=== PATIENT | male | born 1965 | race Caucasian/White ===

== ENCOUNTER 2019-11-13 09:42 | Emergency (ER) | payer BC ==
[~2019-11-13] VITALS: Ht 177.8 cm; Wt 113.4 kg
[2019-11-13] MEDS ORDERED: RISP4 PO (10:12)
[2019-11-13 10:25] LABS: Source, Urine Clean Catch
[2019-11-13 10:29] LABS: Bilirubin, Urine Neg (Neg); Blood, Urine 1+ (Neg); Glucose Qualitative, Urine 3+ (Neg); Ketones, Urine 1+ (Neg); Leukocyte Esterase, Urine Neg (Neg); Nitrite, Urine Neg (Neg); Protein, Urine 1+ (Neg); Specific Gravity, Urine 1.025 (1.003-1.022); Urobilinogen, Urine NORM (Normal)
[2019-11-13 10:55] LABS: Alanine Aminotransfer (ALT/SGP 58 U/L (12-78); Alk Phos 92 U/L (50-136); Anion Gap 5 mmol/L (6-16); Aspartate Aminotrans (AST/SGOT 28 U/L (12-37); Bilirubin, Total 0.5 mg/dL (0.1-1.0); Blood Urea Nitrogen 23 mg/dL (8-24); CO2, Blood 25 mmol/L (21-32); Calcium, Blood 9.2 mg/dL (8.5-10.1); Chloride, Blood 109 mmol/L (98-108); Creatinine, Blood 0.92 mg/dL (0.60-1.20); Globulin, Blood 4.2 g/dL (2.2-4.0); Glomerular Filtration Rate >60 (60-); Glucose, Blood 127 mg/dL (70-99); Potassium, Blood 4.1 mmol/L (3.5-5.5); Sodium, Blood 139 mmol/L (136-145); Total Protein, Blood 8.2 g/dL (6.4-8.2)
[2019-11-13 11:07] LABS: Appearance, Urine Clear (Clear); Color, Urine Yellow (P-Yellow); Red Blood Cells, Urine 0-2 /hpf (0-2); Squamous Epithelial Cells Few /hpf (Few); White Blood Cells, Urine 0-2 /hpf (0-5)
[2019-11-13 11:08] LABS: Bacteria Rare /hpf; Mucus Light (0-Heavy)
== END 2019-11-13 11:30 | disposition home or self-care (01) ==
LOC: ER 09:42
PROVIDERS: Emergency Medicine
DX: M54.5 Low back pain (principal); G89.29 Other chronic pain; R32 Unspecified urinary incontinence; F20.9 Schizophrenia, unspecified; Z79.899 Other long term (current) drug therapy
CPT/HCPCS: 80053; 81001; 99283

== ENCOUNTER 2020-05-29 07:27 | Inpatient (IN) | payer BC, OTHER ==
[~2020-05-29] VITALS: Ht 177.8 cm; Wt 119.4 kg
[~2020-05-29 07:27] MED LIST: RISP4 PO
[2020-05-29] MEDS ORDERED: Flomax0.4 MG PO (07:40)
[2020-05-29 08:03] LABS: BASOPHILS ABSOLUTE AUTO 0.05 K/mm3 (0.00-0.23); BASOPHILS PERCENT AUTO 1 % (0-2); EOSINOPHILS ABSOLUTE AUTO 0.16 K/mm3 (0.00-0.68); EOSINOPHILS PERCENT AUTO 2 % (0-6); Hematocrit 48.6 % (37.0-53.0); Hemoglobin 15.4 g/dL (13.5-17.5); IMMATURE GRAN ABSOLUTE AUTO 0.04 K/mm3 (0.00-0.10); IMMATURE GRAN PERCENT AUTO 0 % (0-1); LYMPHOCYTES ABSOLUTE AUTO 2.57 K/mm3 (0.84-5.20); LYMPHOCYTES PERCENT AUTO 26 % (21-46); MONOCYTES ABSOLUTE AUTO 0.84 K/mm3 (0.16-1.47); MONOCYTES PERCENT AUTO 9 % (4-13); Mean Corpuscular HGB 30.3 pg (26.0-34.0); Mean Corpuscular HGB Conc 31.7 g/dL (31.5-36.5); Mean Corpuscular Volume 96 fL (80-100); NEUTROPHILS ABSOLUTE AUTO 6.06 K/mm3 (1.96-9.15); NEUTROPHILS PERCENT AUTO 63 % (41-73); Platelet Count 197 K/mm3 (150-400); RDW Coefficient Variation 13.6 % (11.7-14.2); RDW Standard Deviation 47.5 fL (35.1-46.3); Red Blood Cell Count 5.08 M/mm3 (4.30-5.90); White Blood Cell Count 9.72 K/mm3 (4.00-11.30)
[2020-05-29 08:25] LABS: Alanine Aminotransfer (ALT/SGP 208 U/L (12-78); Albumin, Blood 3.3 g/dL (3.4-5.0); Albumin/Globulin Ratio 1.1 (0.8-1.8); Alk Phos 62 U/L (50-136); Anion Gap 6 mmol/L (6-16); Aspartate Aminotrans (AST/SGOT 73 U/L (12-37); Bilirubin, Total 0.8 mg/dL (0.1-1.0); Blood Urea Nitrogen 20 mg/dL (8-24); CO2, Blood 21 mmol/L (21-32); Calcium, Blood 8.6 mg/dL (8.5-10.1); Chloride, Blood 115 mmol/L (98-108); Creatinine, Blood 1.11 mg/dL (0.60-1.20); Globulin, Blood 3.1 g/dL (2.2-4.0); Glomerular Filtration Rate >60 (60-); Glucose, Blood 107 mg/dL (70-99); Potassium, Blood 4.4 mmol/L (3.5-5.5); Sodium, Blood 142 mmol/L (136-145); Total Protein, Blood 6.4 g/dL (6.4-8.2); Troponin I <0.015 ng/mL (0.000-0.040)
[2020-05-29 08:36] LABS: Free Thyroxine 0.99 ng/dL (0.70-1.60); Thyroid Stimulating Hormone 2.45 uIU/mL (0.360-4.800)
--- NOTE | 2020-05-29 11:18 | NUR ---
pt arrived to pcu 9 via gurney from ED, report was obtained, pt able to stand and transfer to bed indep. a/ox3, pleasant and coopertive with care, follows commands well, denies pain, but is grunting and acting sob, he states he is a bit sob, sats are 91% on r/a, placed him on 2 liters 02 via n/c for comfort, states its helping some, hrr, tele in place running aflutter in the 120's, Dr. Swann here and asked this life insurance underwriter to give him another 12.5mg of metoprolol at this time, this was done, he also has a cardiology consult that was reported was called in, b/p in the 90's, lungs are clear, dim in bases, resp even and some laboring, sats 95% on 2 liters, btx4, abd round soft nontender, voids without diff, skin c/w/d, ayesha alba, oriented to room layout and call system, call light in reach.
--- NOTE | 2020-05-29 16:59 | NUR ---
IN ROOM, ECHO BEING DONE, EF 10%, DR. GREWAL PT IN ICU FOR PRESSORS, REPORT WAS GIVEN TO CHRISTOS ZAVALETA, PT TAKEN VIA BED TO ICU 6, WITH HIS BELONGINGS WITH HIM.
--- NOTE | 2020-05-29 17:00 | NUR ---
INITIAL ASSESSMENT PATIENT ARRIVED TO ROOM AT 1650. PATIENT ALERT AND ORIENTED X 4, AFEBRILE. PATIENT ANXIOUS. PATIENT DENIES PAIN. PATIENT SATTING 90% AND GREATER ON 2 L NC. PATIENT SOB, BREATHING HEAVILY, LABORED, TACHYPNEIC. LUNGS CLEAR IN UPPER LUNGS, CRACKLES NOTED IN LOWER LOBES. HR 120S. BP STABLE. GI WNL. WNL; URINAL AT BEDSIDE. SKIN APPEARS WNL. BED LOW, CALL LIGHT IN REACH. PATIENT ORIENTED TO UNIT, ROOM AND CALL LIGHT. DR. PALACIO CALLED AND INFORMED OF PATIENT'S BREATHING, HR AND BP. ORDERS RECEIVED.
--- NOTE | 2020-05-29 17:30 | NUR ---
DR. BONE TO PATIENT ROOM. ORDERS RECEIVED.
--- NOTE | 2020-05-29 19:00 | NUR ---
ASSUMED CARE ASSUMED CARE OF PATIENT. AWAKE AND ALERT. ORIENTED AND COOPERATIVE. SLIGHTLY ANXIOUS AND FEARFUL AT TIMES. MOVES SELF IN BED WITHOUT DIFFICULTY. DYSPNEA/SOB NOTED WITH MINIMAL EXERTION. PT HAS RESPIRATORY PATTERN OF SHORT PERIODS OF TACHYPNEA FOLLOWED BY SLOWER RESPIRATIONS. OCCASIONAL LOOSE COUGH. REMAINS ON 2L NC. MONITOR SHOWS AFLUTTER, RATE 120s. RATE INCREASES TO 140-150 WITH EXERTION. AMIODARONE INFUSING AT 1MG/MIN AND DOBUTAMINE AT 5MCG/KG/MIN. BP STABLE. DENIES NAUSEA OR C/O PAIN. PT REQUESTS A CORLEY CATHETER D/T DIFFICULTY USING URINAL AND INCREASED DYSPNEA WITH ATTEMPTS. SEE SHIFT ASSESSMENT FOR FULL ASSESSMENT.
--- NOTE | 2020-05-29 19:25 | NUR ---
SHIFT SUMMARY PATIENT REMAINED ALERT AND ORIENTED, AFEBRILE. PATIENT CONTINUES TO DENY PAIN. HR 120S. BP REMAINS STABLE. BREATHING APPEARS TO BE BECOMING EASIER AND PATIENT AGREES. RR DECREASED FROM INITIAL ADMIT TO UNIT. PATIENT RECEIVED 20 MG IV LASIX. DOBUTAMINE INFUSING AT 5 MCG/ KG/ MINUTE AND IS ORDERED TO REMAIN AT THIS RATE FOR THE REST OF THE NIGHT. AMIODARONE DRIP INFUSING AT 1 MCG/ MINUTE FOR [address] PALACIO UPDATED PATIENT'S MOTHER. PATIENT HAS NO COMPLAINTS AT THIS TIME. DRIPS CHECKED AND REPORT GIVEN TO ASSUMING MORTUARY OPERATIONS MANAGER NURSE.
--- NOTE | 2020-05-30 00:40 | NUR ---
AMIODARONE GTT AMIODARONE GTT DECREASED TO 0.5MG/MIN (16.7CC/HR) AT THIS TIME PER ORDER
[2020-05-30 03:52] LABS: BASOPHILS ABSOLUTE AUTO 0.03 K/mm3 (0.00-0.23); BASOPHILS PERCENT AUTO 0 % (0-2); EOSINOPHILS ABSOLUTE AUTO 0.11 K/mm3 (0.00-0.68); EOSINOPHILS PERCENT AUTO 1 % (0-6); Hematocrit 43.5 % (37.0-53.0); Hemoglobin 14.1 g/dL (13.5-17.5); IMMATURE GRAN ABSOLUTE AUTO 0.06 K/mm3 (0.00-0.10); IMMATURE GRAN PERCENT AUTO 1 % (0-1); LYMPHOCYTES ABSOLUTE AUTO 2.68 K/mm3 (0.84-5.20); LYMPHOCYTES PERCENT AUTO 21 % (21-46); MONOCYTES ABSOLUTE AUTO 1.07 K/mm3 (0.16-1.47); MONOCYTES PERCENT AUTO 8 % (4-13); Mean Corpuscular HGB 30.9 pg (26.0-34.0); Mean Corpuscular HGB Conc 32.4 g/dL (31.5-36.5); Mean Corpuscular Volume 95 fL (80-100); Mean Platelet Volume 10.1 fL (9.1-12.4); NEUTROPHILS ABSOLUTE AUTO 8.85 K/mm3 (1.96-9.15); NEUTROPHILS PERCENT AUTO 69 % (41-73); Platelet Count 196 K/mm3 (150-400); RDW Coefficient Variation 13.5 % (11.7-14.2); RDW Standard Deviation 47.1 fL (35.1-46.3); Red Blood Cell Count 4.57 M/mm3 (4.30-5.90)
[2020-05-30 04:07] LABS: Anion Gap 6 mmol/L (6-16); Blood Urea Nitrogen 20 mg/dL (8-24); Bun/Creatinine Ratio 20.9 (12.0-20.0); CO2, Blood 26 mmol/L (21-32); Calcium, Blood 8.2 mg/dL (8.5-10.1); Chloride, Blood 109 mmol/L (98-108); Creatinine, Blood 0.96 mg/dL (0.60-1.20); Glomerular Filtration Rate >60 (60-); Glucose, Blood 95 mg/dL (70-99); Potassium, Blood 3.8 mmol/L (3.5-5.5); Sodium, Blood 141 mmol/L (136-145)
--- NOTE | 2020-05-30 06:09 | NUR ---
SHIFT SUMMARY NO ACUTE CHANGES DURING NOC. SLEPT WHEN UNDISTURBED. ROUSES EASILY TO STIMULI. DENIES C/O PAIN OR DISCOMFORT. PT STATES THAT HE FEELS LIKE HE IS "BREATHING BETTER" THIS AM. CONTINUES WITH RESPIRATORY PATTERN OF TACHYPNEA FOLLOWED BY SLOWER RESPIRATIONS. DYSPNEA/SOB WITH EXERTION. REMAINS ON 2L NC. REMAINS IN A-FLUTTER, RATE 110s-120s. OCCASIONALLY INCREASES WITH EXERTION. AMIODARONE CONTINUES AT 0.5MG/MIN. DOBUTAMINE CONTINUES AT 5MCG/KG/MIN. AFEBRILE. JORY PATENT AND DRAINING. WILL REPORT TO ONCOMING RN WHEN AVAILABLE.
--- NOTE | 2020-05-30 09:25 | NUR ---
ECHOCARDIOGRAM DONE IN u 05/29/20
--- NOTE | 2020-05-30 09:30 | NUR ---
AM NOTE... ASSUMED CARE OF PT APROX 0700, PT IS A&Ox4. PT WAS ADMITTED FOR AFLUTTER W/RVR AND SOB. CURRENTLY PT IS IN AFLUTTER IN THE 110'S-120'S TO 130'S WITH ACTIVITY/TALKING/EATING. PT'S BREATHING IS LABORED W/ACCESSORY MUSCLE USE AND OCC GRUNTING, PT IS ON 2L NC WITH O2 SATS>90%. L/S CLEAR IN THE UPPER LOBES FINE CRACKLES NOTED IN THE BASES. TRACE GENGERALIZED EDEMA IS NOTED ON ASSESSMENT. BT PRESENT AND HYPOACTIVE, ABD HAS MILD DISTENTION, SOFT NONTENDER TO PALP. PT ATE 100% OF HIS BREAKFAST. CORLEY IS PATENT AND DRAINING DARK YELLOW URINE TO GRAVITY. PT HAS AMIODERONE GTT RUNNING AT 0.5 AND DOBUTAMINE RUNNING AT 5MCG/KG/MIN PER DR. BONE'S ORDERS. AT THE BEDSIDE TO ASSESS PT, PER DR. BONE HE WANTS TO KEEP THE AMIODERONE GTT RUNNING AT 0.5 UNTIL AT LEAST 8/[address] BONE ALSO WANTS TO CONTINUE THE DOBUTAMINE GTT AT 5MCG/KG/MIN. CALL LIGHT IN REACH WILL CONTINUE TO MONITOR.
--- NOTE | 2020-05-30 18:38 | NUR ---
SHIFT SUMMARY... NO ACUTE NEGATIVE CHANGES NOTED THIS SHIFT. PT REMAINS ON AMIODERONE AT 0.5, PER DR. BONE PT IS TO REMAIN ON THIS DRIP UNTIL HE REASSESSES THE PT TOMORROW. PT ALSO REMAINS ON THE DOBUTAMINE GTT AT 5MCG/KG/MIN, PT'S BP HAS BEEN STABLE T/O SHIFT. PT REMAINS IN AFLUTTER IN THE 90'S-110'S, THIS IS AN IMPROVMENT FROM THE START OF THIS SHIFT WHEN HE WAS IN THE 110'S-130'S. PT'S CORLEY REMAINS PATENT AND DRAINING CLEAR YELLOW URINE TO GRAVITY. PT HAS EATEN 100% OF ALL MEALS TODAY. PT HAS DENIED ANY CHEST PAIN/PRESSURE OR N/V TODAY, PT ALSO STATES THAT HIS SOB HAS IMPROVED T/O THE SHIFT. PT MOVES HIMSELF AROUND IN THE BED FREQUENTLY. PT IS CURRENTLY ON RA WITH O2 SATS AT 92% PT USES O2 PRN AT THIS TIME. CALL LIGHT IN REACH WILL CONTINUE TO MONITOR UNTIL REPORT IS GIVEN TO ONCOMING RN.
--- NOTE | 2020-05-30 19:31 | NUR ---
ASSUMING CARE OF PATIENT PATIENT RESTING IN BED CURRENTLY WITH EYES CLOSED. BEDSIDE BEADING SAWYER SHOWS ATRIAL FLUTTER. BLOOD PRESSURE IS STABLE. HEART RATE IS IN THE 70S-90S. OXYGEN SATURATION STABLE ON ROOM AIR. BREATHING PATTERN IS IRREGULAR AND TACHYPNEIC. ABDOMEN IS ROUNDED. CORLEY CATHETER IN PLACE AND DRAINING. DOBUTAMINE IS INFUSING AT 5 MCG THROUGH THE POWERGLIDE. AMIODARONE CONTINUES AT O.5 MG. CALL LIGHT WITHIN REACH AND CURTAIN OPEN FOR VISIBILITY.
[2020-05-31 04:11] LABS: BASOPHILS ABSOLUTE AUTO 0.04 K/mm3 (0.00-0.23); BASOPHILS PERCENT AUTO 0 % (0-2); EOSINOPHILS PERCENT AUTO 2 % (0-6); Hematocrit 43.1 % (37.0-53.0); Hemoglobin 14.1 g/dL (13.5-17.5); IMMATURE GRAN ABSOLUTE AUTO 0.03 K/mm3 (0.00-0.10); IMMATURE GRAN PERCENT AUTO 0 % (0-1); LYMPHOCYTES ABSOLUTE AUTO 1.75 K/mm3 (0.84-5.20); LYMPHOCYTES PERCENT AUTO 16 % (21-46); MONOCYTES ABSOLUTE AUTO 0.98 K/mm3 (0.16-1.47); MONOCYTES PERCENT AUTO 9 % (4-13); Mean Corpuscular HGB 30.9 pg (26.0-34.0); Mean Corpuscular HGB Conc 32.7 g/dL (31.5-36.5); Mean Corpuscular Volume 95 fL (80-100); NEUTROPHILS ABSOLUTE AUTO 7.67 K/mm3 (1.96-9.15); NEUTROPHILS PERCENT AUTO 72 % (41-73); Platelet Count 194 K/mm3 (150-400); RDW Coefficient Variation 13.6 % (11.7-14.2); RDW Standard Deviation 46.8 fL (35.1-46.3); Red Blood Cell Count 4.56 M/mm3 (4.30-5.90); White Blood Cell Count 10.67 K/mm3 (4.00-11.30)
[2020-05-31 04:48] LABS: Anion Gap 4 mmol/L (6-16); Blood Urea Nitrogen 17 mg/dL (8-24); Bun/Creatinine Ratio 14.7 (12.0-20.0); CO2, Blood 27 mmol/L (21-32); Calcium, Blood 8.5 mg/dL (8.5-10.1); Chloride, Blood 110 mmol/L (98-108); Creatinine, Blood 1.16 mg/dL (0.60-1.20); Glomerular Filtration Rate >60 (60-); Glucose, Blood 104 mg/dL (70-99); Magnesium, Blood 2.2 mg/dL (1.6-2.4); Potassium, Blood 4.2 mmol/L (3.5-5.5); Sodium, Blood 141 mmol/L (136-145)
--- NOTE | 2020-05-31 06:31 | NUR ---
END OF SHIFT SUMMARY PATIENT REMAINS INTACT NEUROLOGICALLY WITH EXCEPTION OF SOME DELAYED RESPONSES. ANXIOUS AT TIMES. BP STABLE. AMIODARONE AND DOBUTAMINE CONTINUE WITH NO CHANGES. HEART RATE IS LABILE WITH RATE RANGING BETWEEN 70S-120S. BEDSIDE SENIOR LOAN OFFICER SHOWS ATRIAL FLUTTER. TRACE EDEMA. LUNGS CLEAR AND DIM. OXYGEN SATURATION STABLE ON ROOM AIR WHILE AWAKE. 2-5 L NC WHILE ASLEEP. TOLERATING CARDIAC DIET WELL. CORLEY CATHETER REMAINS IN PLACE WITH ADEQUATE URINE OUTPUT. SKIN INTACT WITH SOME SCATTERED BRUISING. PIV X [address] IN PLACE AND INFUSING DOBUTAMINE.
--- NOTE | 2020-05-31 07:35 | NUR ---
AM NOTE... ASSUMED CARE OF PT APROX 0700, PT IS A&Ox4 WITH SLOW RESPONSES AT TIMES. PT IS STILL IN AFLUTTER RVR WITH RATES 90'S-120'S, PT HAD A 7 BEAT RUN OF SYMPTOMATIC VTACH, DURING THIS EPISODE PT C/O OF INCREASED SOB. PT'S OTHER VS STABLE AT THIS TIME, PT IS ON 2L NC PRN WITH O2 SATS >90%. L/S CLEAR T/O DIM IN THE BASES. BT PRESENT AND HYPOACTIVE ABD IS SOFT AND NONTENDER TO PALP. PT DENIES ANY CHEST PAIN/PRESSURE OR N/V AT THIS TIME. TRACE EDEMA NOTED TO BLE ON ASSESSMENT. CORLEY IS PATENT AND DRAINING YELLOW URINE TO GRAVITY. PT IS ON AMIODERONE GTT RUNNING AT 0.[address] BONE. PT IS ALSO ON DOBUTAMINE RUNNING AT 5 MCG/KG/MIN PER DR. BONE'S ORDERS. PT ATE 100% OF HIS BREAKFAST. PT STATES HE FEELS "A LITTLE BETTER" TODAY THAN HE DID YESTERDAY. CALL LIGHT IN REACH WILL CONTINUE TO MONITOR.
--- NOTE | 2020-05-31 14:05 | NUR ---
PARTIAL ECHOCARDIOGRAM COMPLETE
--- NOTE | 2020-05-31 18:21 | NUR ---
SHIFT SUMMARY... NO ACUTE NEGATIVE CHANGES NOTED THIS SHIFT. PT REMAINS IN AFLUTTER RVR WITH RATES IN THE 90'S-120'S. PT IS ON 2L NC WITH O2 SATS >90%. PT'S BP STABLE T/O SHIFT. PT DENIES ANY CHEST PAIN/PRESSURE. PER DR. BONE PT IS TO BE NPO AFTER MIDNIGHT FOR GERALDO/CARDIOVERSION [id number]. PT GOT UP TO THE BSC AND HAD A SMALL BM, THEN UP TO RECLINER CHAIR. PT'S HR DID NOT INCREASE OVER 125 DURING ACTIVITY, THIS IS AN IMPROVEMENT, PT ALSO STATED THAT HE DID NOT FEEL INCREASED SHORTNESS OF BREATH DURING THIS MOVMENT. PT WAS GIVEN A BEDBATH AND LINEN CHANGE. PT HAS EATEN 100% OF ALL MEALS THIS SHIFT. PT HAD ANOTHER ECHO DONE, PENDING RESULTS. CALL LIGHT IN REACH WILL CONTINUE TO MONITOR UNTIL REPORT IS GIVEN TO ONCOMING RN.
--- NOTE | 2020-05-31 18:42 | NUR ---
PT UPDATE... PT'S IV IN LEFT FOREARM WAS D/C'D DUE TO THE SITE INFLITRATING WITH AMIODERONE. PHARMACY WAS CALLED THERE IS NO INTERVENTION TO DO FOR THIS TYPE OF INFILTRATION. CHARGE NURSE AWARE, THERE IS A FIRM RED AREA THE SIZE OF A GOLF BALL AT THE SITE. WILL CONTINUE TO MONITOR.
--- NOTE | 2020-05-31 19:30 | NUR ---
ASSUMED CARE BEDSIDE REPORT WITH CARMINA ZAVALETA AT 1900. ASSUMED PT CARE. PT SITTING UP IN CHAIR, ASSISTED BACK TO BED. PT MOVES WELL, ONLY REQUIRES ASSISTANCE DUE TO CORDS AND LINES. PT ALERT AND ORIENTED. DENIES PAIN. STATES SOB HAS BEEN IMPROVING WITH SINCE ADMIT. PT HAS POWER GLIDE TO RIGHT UPPER ARM THAT IS CAPPED. PT HAS NEW TL PICC LINE TO LEFT UPPER ARM WITH AMIODARONE INFUSING @ 0.5MCG/MIN (CONTINUOUS INFUSION PER DR BONE), AND DOBUTAMINE INFUSING @ 5MCG/KG/MIN (RATE TO STAY AT 5MCG WITH NO TITRATION PER DR BONE). ABD SOFT BUT DISTENDED, BS HYPOACTIVE. PT HAS PATENT CORLEY DRAINING SMALL AMOUNT OF LEO URINE. PT MOVES ALL 4 EXT INDEPENDENTLY. PT HAS O2 AT 4L PER NC, SATS >92%. PT ON CONTINUOUS CARDIAC MONITORING, CURRENTLY AFLUTTER RATE LOW 100'S. PT HAS NO EDEMA. DENIES NAUSEA. DENIES SOB DESPITE TACHYPNEA. SITE TO LEFT UPPER ARM FOLLOWS. AC AREA SWOLLEN AND RED WITH QUARTER SIZE AREA OF INDURATION, PT STATES THIS IS TENDER. REDNESS EXTENDS UP TO MID BICEP AREA. CARMINA ZAVALETA STATES ARM LOOKED THIS WAY PRIOR TO PICC LINE PLACEMENT. STATES IT WAS FROM AMIODARONE INFILTRATING. PICC LINE DRESSING SATURATED WITH BLOOD (DRESSING CHANGED TO NEW TEGADERM CHG). SEE PICS IN CHART. SEE FULL SHIFT ASSESSMENT
[2020-06-01 04:39] LABS: Anion Gap 5 mmol/L (6-16); Blood Urea Nitrogen 18 mg/dL (8-24); Bun/Creatinine Ratio 15.5 (12.0-20.0); CO2, Blood 27 mmol/L (21-32); Calcium, Blood 8.8 mg/dL (8.5-10.1); Chloride, Blood 108 mmol/L (98-108); Creatinine, Blood 1.16 mg/dL (0.60-1.20); Glomerular Filtration Rate >60 (60-); Glucose, Blood 105 mg/dL (70-99); Potassium, Blood 4.2 mmol/L (3.5-5.5); Sodium, Blood 140 mmol/L (136-145)
--- NOTE | 2020-06-01 06:16 | NUR ---
SHIFT SUMMARY PT HAD UNEVENTFUL SHIFT. PT RESTED WELL. PT ON 4L O2 PER NC, SATS >92%. PT ON MONITOR, SHOWING A FLUTTER RATE 95-120. PT HAS TL PICC TO JUAN C, WITH AMIODARONE INFUSING AT 0.5MCG/MIN AND DOBUTAMINE INFUSING AT 5MCG/KG/MIN. SITE CONTINUES TO LOOK UNCHANGED FROM START OF SHIFT. DRESSING C/D/I, SITE STILL SHOWS SOME CONGEALED BLOOD. PRESSURES ARE CURRENTLY STABLE, THERE WERE A FEW PRESSURES WITH SBP <80. PT DENIED CP OR SIGNIFICANT SOB. PT ALERT AND ORIENTED. PT HAS PATENT CORLEY WITH YELLOW URINE DRAINING (TOTAL OUT 1500ML LAST SHIFT). PT HAS DL POWER GLIDE TO TU, DRESSING C/D/I. PT CONTINUES TO GRUNT WHILE BREATHING. PT HAS BEEN NPO SINCE MIDNIGHT FOR GERALDO CARDIOVERSION WITH ANESTHESIOLOGY PLANNED FOR TODAY. PT ABD SOFT AND DISTENDED. BOWEL CARE STARTED YESTERDAY. PT DENIES NAUSEA/VOMITING. NO STOOL DURING OCEAN LIFEGUARD SPECIALIST. WILL REPORT TO ONCOMING SHIFT.
--- NOTE | 2020-06-01 09:17 | NUR ---
AM NOTE... ASSUMED CARE OF PT APROX 0700, PT IS A&Ox4, SLOW TO RESPOND, FLAT AFFECT BUT RESPONDS APPROPRIATELY TO QUESTIONS. PT HAS BEEN NPO SINCE MIDNIGHT FOR GERALDO AND POSSIBLE CARDIOVERSION FOR HIS AFLUTTER RVR. PT'S CURRENT RATE IS IN THE 100'S-120'S. PT DENIES CHEST PAIN/PRESSURE OR INCREASED SOB. PT WAS ON 4L NC BUT HAS BEEN TITRATED DOWN TO 2L NC WITH O2 SATS >92%. PT HAS PICC IN THE JUAN C THAT IS RUNNING AMIODERONE AT 0.5 AND DOBUTAMINE AT 5MCG/KG/MIN PER ORDERS. L/S CLEAR T/O DIM IN THE BASES. BT PRESENT BUT HYPOACTIVE,ABD IS SOFT AND NONTENDER TO PALP. CALL LIGHT IN REACH WILL CONTINUE TO MONITOR.
--- NOTE | 2020-06-01 13:28 | NUR ---
PT UPDATE... PT HAD GERALDO THAT SHOWED NO CLOT AND THEN HAD CARDIOVERSION, THIS WAS SUCCESSFUL WITH THE PT CONVERTING FROM AFLUTTER IN THE 110'S-120'S TO NSR IN THE 70'S-80'S. PT DENIES ANY CHEST PAIN/PRESSURE AT THIS TIME. PT'S O2 SATS DROPPED TO 87%, PT'S O2 WAS INCREASED FROM 2L NC TO 5L NC WITH O2 SATS >94%. WILL CONTINUE TO MONITOR.
--- NOTE | 2020-06-01 18:09 | NUR ---
SHIFT SUMMARY... NO ACUTE NEGATIVE CHANGES NOTED THIS SHIFT. PT HAD GERALDO AND CARDIOVERSION THAT WAS SUCCESSFUL PT WAS CONVERTED TO NSR IN THE 70'S-80'S AND HAS REMAINED IN NSR. PT IS ON 2L NC WITH O2 SATS >90%. PT'S VS HAVE BEEN STABLE SINCE THE CARDIOVERSION. PT HAS BEEN UP IN THE CHAIR AND ATE 100% OF HIS DINNER. CORLEY PATENT AND DRAINING YELLOW URINE TO GRAVITY. CALL LIGHT IN REACH WILL CONTINUE TO MONITOR UNTIL REPORT IS GIVEN TO ONCOMING RN.
--- NOTE | 2020-06-01 19:00 | NUR ---
ASSUMED CARE BEDSIDE REPORT WITH CARMINA ZAVALETA. ASSUMED PT CARE. PT ALERT AND ORIENTED. WORK OF BREATHING OBVIOUSLY IMPROVE FROM PREVIOUS SHIFT WITH PT. PT SITTING IN BED PLAYING ON PHONE. PLAN TO DECREASE DOBUTAMINE BY 1MCG/HR PER HR UNTIL 0, DECREASED TO 3MCG AT THIS TIME. PT ALSO HAS AMIODARONE INFUSING AT 0.5MCG/MIN. PT HAS POWER GLIDE TO [facility], SITE C/D/I. PT HAS TL PICC TO [facility], SITE WNL. AREA TO LEFT FA/AC STILL SWOLLEN AND RED WITH INDURATION. PT STATES ITS "SORE". PT HAS PATENT CORLEY DRAINING YELLOW URINE, PT ON MONITOR, SHOWS NSR AT 89. PT DENIES CP. PT ON 3L O2 PER NC, SATS >92%. BP STABLE. PT REPORTS BM TODAY. GOOD APPETITE. DENIES N/V. SEE FULL SHIFT ASSESSMENT.
[2020-06-02 04:13] LABS: Anion Gap 5 mmol/L (6-16); Blood Urea Nitrogen 27 mg/dL (8-24); Bun/Creatinine Ratio 21.1 (12.0-20.0); CO2, Blood 29 mmol/L (21-32); Calcium, Blood 8.6 mg/dL (8.5-10.1); Chloride, Blood 105 mmol/L (98-108); Creatinine, Blood 1.28 mg/dL (0.60-1.20); Glomerular Filtration Rate >60 (60-); Glucose, Blood 101 mg/dL (70-99); Sodium, Blood 139 mmol/L (136-145)
--- NOTE | 2020-06-02 06:45 | NUR ---
SHIFT SUMMARY PT REMAINED ALERT AND ORIENTED THROUGH OUT SHIFT. DOBUTAMINE DRIP TITRATED OFF AT 2214. AMIO COMPLETE AT 0337. JORY LYMAN THIS AM, PT HAS NOT VOIDED. PT VSS, SKIN REMAINS INTACT. LUNG SOUNDS CLEAR/DIMINISHED. SATS >92% ON 2-4L O2 PER NC. PT HAS GOOD APPETITE AND TOLERATES PO W/O ISSUE, LAST BM 06/01, PT CONTINUES WITH SOFTNERS. PT SKIN OVER ALL C/D/I. NO FURTHER COMPLICATION TO LEFT FA/AC (SITE OF PREVIOUS IV INFILTRATION). NO COMPLAINTS OF PAIN OR SOB. WILL REPORT TO ONCOMING SHIFT.
--- NOTE | 2020-06-02 08:00 | NUR ---
Received reort from Darell ZAVALETA. Patient sleeping when entering room and awakens easily to verbal stimuli and falls back to sleep. He is n RA and sats >90%. He is able to communicate his needs but slowly. He denies any CP and remains in SR in the 80's. Patient has PICC in JUAN C dressing intact and site WNL's and is Flushed , caps changed and SL'd. He also has PowerGlide 18ga in TU dressing intact and site WNL's and is flushed, caps changed, and SL'd. He calls and uses urinal appropriately.
--- NOTE | 2020-06-02 09:30 | NUR ---
Patient tolerated meds and breakfast well. Denies any current needs or CP. He remains in SR 80's with systolic 130's. No other significant changes.
--- NOTE | 2020-06-02 11:30 | NUR ---
Patient has been resting. He calls appropriately and does not get out of bed without calling. He remains on RA and sats >90% and has not desat when resting. No other significant changes
--- NOTE | 2020-06-02 13:30 | NUR ---
patient called to get up to bedside cammode and was able to transfer with SBA and transfered self back to bed. He states dyspnea with exertion. Dr Swann by and is Med with tele and will have PT eval. Dr Decker by as well and had some concern about med compliance after discharge. Will talk with SS and talk about out patient psych and PCP. Slightly hypotensive in the 90since am med pass, both Dr notified. VSS, See EMR.
--- NOTE | 2020-06-02 15:10 | NUR ---
Gave report to med RN and patient will transfer to Room 331 all belonging gathered and patient will go up in wheelchair.
--- NOTE | 2020-06-02 15:30 | NUR ---
PT ARRIVED TO ROOM 331 VIA W/C, ABLE TO STAND AND TRANSFER TO BED WITHOUT APPARENT DIFFICULTY, ORIENTED TO ROOM AND CALL SYSTEM. PT DENIES PAIN AND DISCOMFORT AT THIS TIME, NO WANTS OR NEEDS. WILL MONITOR
--- NOTE | 2020-06-02 16:24 | NUR ---
Supportive Pt visit this afternoon. Pt resting in bed and denies pain and dyspnea at this time. Listened as Pt reports living with his sister and is having concerns regarding not being on the rental lease. Pt reports hopefulness that he will be able to get on the lease when the new landlords take over. Pt reports adequate support with his sister. Educated on the importance of compliance with recommendations and medication management. Pt is agreeable for Palliative Care to discuss further with sister when she comes into visit. Pt reports sister has hearing impairment and isn't able to communicate over the phone well. Pt reports no other concerns at this time. Spoke with Bedside WAQAR Jovel and discussed case. Palliative Care will remain available.
--- NOTE | 2020-06-02 18:10 | NUR ---
NO ACUTE CHANGES SINCE ARRIVAL TO ROOM, WILL REPORT TO ONCOMING RN
--- NOTE | 2020-06-03 06:06 | NUR ---
BLOCK SETTER GYPSUM SUMMARY NO ACUTE CHANGES THIS SHIFT. PT AAOX3 AND PLEASANT. FLAT AFFECT AND A BIT WITHDRAWN BUT COOPERATIVE WITH CARE. NO CHANGES ON TELE, HAS BEEN NSR IN THE 70-80'S TONIGHT. PT HAS BEEN SLEEPING MOST OF THE SHIFT. VSS, WILL CONTINUE TO MONITOR.
[2020-06-03 08:00] LABS: BASOPHILS ABSOLUTE AUTO 0.03 K/mm3 (0.00-0.23); BASOPHILS PERCENT AUTO 0 % (0-2); EOSINOPHILS PERCENT AUTO 4 % (0-6); Hematocrit 44.8 % (37.0-53.0); Hemoglobin 14.8 g/dL (13.5-17.5); IMMATURE GRAN ABSOLUTE AUTO 0.04 K/mm3 (0.00-0.10); IMMATURE GRAN PERCENT AUTO 1 % (0-1); LYMPHOCYTES ABSOLUTE AUTO 1.78 K/mm3 (0.84-5.20); LYMPHOCYTES PERCENT AUTO 21 % (21-46); MONOCYTES PERCENT AUTO 10 % (4-13); Mean Corpuscular HGB 30.9 pg (26.0-34.0); Mean Corpuscular Volume 94 fL (80-100); Mean Platelet Volume 10.1 fL (9.1-12.4); NEUTROPHILS ABSOLUTE AUTO 5.45 K/mm3 (1.96-9.15); NEUTROPHILS PERCENT AUTO 65 % (41-73); Platelet Count 197 K/mm3 (150-400); RDW Standard Deviation 45.3 fL (35.1-46.3); Red Blood Cell Count 4.79 M/mm3 (4.30-5.90)
[2020-06-03 08:39] LABS: Alanine Aminotransfer (ALT/SGP 85 U/L (12-78); Anion Gap 5 mmol/L (6-16); Aspartate Aminotrans (AST/SGOT 22 U/L (12-37); Blood Urea Nitrogen 28 mg/dL (8-24); CO2, Blood 26 mmol/L (21-32); Calcium, Blood 8.7 mg/dL (8.5-10.1); Chloride, Blood 108 mmol/L (98-108); Creatinine, Blood 1.22 mg/dL (0.60-1.20); Glomerular Filtration Rate >60 (60-); Glucose, Blood 99 mg/dL (70-99); Potassium, Blood 4.4 mmol/L (3.5-5.5); Sodium, Blood 139 mmol/L (136-145)
--- NOTE | 2020-06-03 16:49 | NUR ---
SHIFT SUMMARY PT A/O X3 AND PLEASANT. HIS AFFECT APPEARS FLAT BUT HE IS COOPERATIVE WITH CARE. PICC LINE DRESSING AND CAPS CHANGED TODAY. IN ORDER TO HELP ALLEVIATE THE PT'S DRY COUGH, LISINOPRIL HAS BEEN CHANGED TO [place]. PT HAS BEEN IND IN THE ROOM TODAY. NO CHANGES TO TELE, PT REMAINS IN NSR IN THE 70S-80S. VS REVIEWED. WILL CONTINUE TO MONITOR.
[2020-06-04 05:17] LABS: BASOPHILS ABSOLUTE AUTO 0.05 K/mm3 (0.00-0.23); BASOPHILS PERCENT AUTO 1 % (0-2); EOSINOPHILS ABSOLUTE AUTO 0.32 K/mm3 (0.00-0.68); EOSINOPHILS PERCENT AUTO 4 % (0-6); Hematocrit 43.6 % (37.0-53.0); Hemoglobin 14.1 g/dL (13.5-17.5); IMMATURE GRAN ABSOLUTE AUTO 0.04 K/mm3 (0.00-0.10); IMMATURE GRAN PERCENT AUTO 1 % (0-1); LYMPHOCYTES ABSOLUTE AUTO 1.89 K/mm3 (0.84-5.20); LYMPHOCYTES PERCENT AUTO 22 % (21-46); MONOCYTES ABSOLUTE AUTO 0.85 K/mm3 (0.16-1.47); MONOCYTES PERCENT AUTO 10 % (4-13); Mean Corpuscular HGB 30.3 pg (26.0-34.0); Mean Corpuscular HGB Conc 32.3 g/dL (31.5-36.5); Mean Corpuscular Volume 94 fL (80-100); Mean Platelet Volume 10.2 fL (9.1-12.4); NEUTROPHILS ABSOLUTE AUTO 5.49 K/mm3 (1.96-9.15); NEUTROPHILS PERCENT AUTO 64 % (41-73); Platelet Count 204 K/mm3 (150-400); RDW Coefficient Variation 12.9 % (11.7-14.2); RDW Standard Deviation 44.6 fL (35.1-46.3); Red Blood Cell Count 4.65 M/mm3 (4.30-5.90); White Blood Cell Count 8.64 K/mm3 (4.00-11.30)
[2020-06-04 05:37] LABS: Alanine Aminotransfer (ALT/SGP 77 U/L (12-78); Anion Gap 4 mmol/L (6-16); Aspartate Aminotrans (AST/SGOT 24 U/L (12-37); Blood Urea Nitrogen 30 mg/dL (8-24); Bun/Creatinine Ratio 23.8 (12.0-20.0); CO2, Blood 27 mmol/L (21-32); Calcium, Blood 8.6 mg/dL (8.5-10.1); Chloride, Blood 109 mmol/L (98-108); Creatinine, Blood 1.26 mg/dL (0.60-1.20); Glomerular Filtration Rate >60 (60-); Glucose, Blood 95 mg/dL (70-99); Potassium, Blood 4.3 mmol/L (3.5-5.5); Sodium, Blood 140 mmol/L (136-145)
--- NOTE | 2020-06-04 06:03 | NUR ---
PT CALM COOPERATIVE WITH CONCERN FOR Sister who had GI flu & had discussed going AMA to assist her to get to ER to be evaluated. He stayed calm & used problem solving skills to stay calm & arrange to assist her while still in the Hospital. No abnormal cardiac rythems this shift per tele monitor. Able to tolerate diet & activity.
--- NOTE | 2020-06-04 16:59 | NUR ---
Shift Summary A/Ox4. Cooperative with care. Up ambulating in hallway independenly. Calls for needs appropriately. Denies pain, nausea, vomiting. Pt did c/o have slight shortness of breath after ambulating. Tele remained SR t/o shift. Denies chest pain. Repeat ECHO completed today. Per Dr. Decker, patient to stay one more night. Possible discharge tomorrow. Appetite is good. VS has been fairly stable with SBP's in the high 90's. Afebrile. Will continue to monitor.
--- NOTE | 2020-06-04 18:20 | NUR ---
LASIX RECEIVED VERBAL ORDER FROM DR. BONE FOR ONCE TIME DOSE OF LASIX 20 MG.
--- NOTE | 2020-06-04 18:21 | NUR ---
DISCHARGE MED REC VERIFIED DISCHARGE MEDS WITH DR. BONE. NO NEW CHANGES, ALL ARE APPROPRIATE PER DOCUMENT CONTROL SPECIALIST.
--- NOTE | 2020-06-04 21:37 | NUR ---
PT UP AD MARCE TO HALLS; DENIES PAIN OR NAUSEA; TELEMETRY REFLECTS NSR WITH HEART RATE 72 PER DELIA--COMPRESSED GAS PLANT WORKER.
--- NOTE | 2020-06-05 03:45 | NUR ---
SHIFT SUMMARY: 55 Y/O OBESE MALE RESTED COMFORTABLY ALL SHIFT; DENIES PAIN OR NAUSEA; UP AD MARCE WITHOUT ISSUE; TELEMETRY REFLECTS NSR PER DELIA--MELTER SUPERVISOR; EAGER TO RETURN HOME TODAY; BED LOW POSITION WITH CALL LIGHT AT SIDE.
[2020-06-05 10:33] LABS: Albumin, Blood 3.2 g/dL (3.4-5.0); Anion Gap 4 mmol/L (6-16); Blood Urea Nitrogen 25 mg/dL (8-24); Bun/Creatinine Ratio 18.8 (12.0-20.0); CO2, Blood 29 mmol/L (21-32); Calcium, Blood 8.7 mg/dL (8.5-10.1); Chloride, Blood 107 mmol/L (98-108); Creatinine, Blood 1.33 mg/dL (0.60-1.20); Glomerular Filtration Rate 59 (60-); Glucose, Blood 126 mg/dL (70-99); Phosphorus, Blood 3.2 mg/dL (2.5-4.9); Sodium, Blood 140 mmol/L (136-145)
[2020-06-05] MEDS ORDERED: Amiodarone HCl200 MG PO (11:42)
[2020-06-05] MEDS ORDERED: LOSA25 PO (11:44)
[2020-06-05] MEDS ORDERED: FURO40 PO (11:44)
[2020-06-05] MEDS ORDERED: TOPROL XL25 MG PO (11:46)
[2020-06-05] MEDS ORDERED: SPIR25 PO ×2 (11:48→11:49)
[2020-06-05] MEDS ORDERED: XARELTO20 MG PO (11:48)
--- NOTE | 2020-06-05 13:46 | NUR ---
Discharge Summary A/Ox4, flat affect. Speech is clear to begin with and then mumbles toward the end of every sentence. Power glide removed by this RN. PICC removed by intake coordinator Darell. Reviewed discharge paperwork with patient, questions were answered. Copy has been provided. This RN confirmed discharge was ok with Dr. Decker prior to discharging patient. Follow-up scheduling of appointments were attempted to be made but were unsuccessful. Offices will phone patient to schedule those appts. Patient will be escorted by staff via w/c. Taxi for transport home. Personal belongings bagged and sent dietrich.
== END 2020-06-05 14:05 | disposition home or self-care (01) | DRG 314 ==
LOC: ER 07:27 → ICUE 08:43 → PCU 08:43 → ICUE 16:52 → MEDS 06-02 15:22
PROVIDERS: Emergency Medicine; Internal Medicine; Internal Medicine Cardiovascular Disease; ADMIT Internal Medicine
PROC: 02HV33Z Insertion of Infusion Device into Superior Vena Cava, Percutaneous Approach (ICD-10-PCS; 2020-05-29)
PROC: 5A2204Z Restoration of Cardiac Rhythm, Single (ICD-10-PCS; principal; 2020-06-01)
PROC: B246ZZ4 Ultrasonography of Right and Left Heart, Transesophageal (ICD-10-PCS; 2020-06-04)
DX: I42.0 Dilated cardiomyopathy (principal); R57.0 Cardiogenic shock; I50.21 Acute systolic (congestive) heart failure; I48.92 Unspecified atrial flutter; N40.0 Benign prostatic hyperplasia without lower urinary tract symptoms; F20.9 Schizophrenia, unspecified; F41.9 Anxiety disorder, unspecified; I48.91 Unspecified atrial fibrillation; E66.9 Obesity, unspecified; Z68.38 Body mass index [BMI] 38.0-38.9, adult; R05 Cough; T46.4X5A Adverse effect of angiotensin-converting-enzyme inhibitors, initial encounter; Y92.230 Patient room in hospital as the place of occurrence of the external cause
CPT/HCPCS: 36415; 36569; 51702; 71045; 80048; 80053; 80069; 80162; 83735; 83880; 84439; 84443; 84450; 84460; 84484; 85025; 93005; 93010; 93308; 93312; 93325; 96374; 97112; 97162; 99285-25; A9270; A9270-GY; C1751; C8923; C8929; J0282; J1160; J1250; J1940; J2704; J7030; J7060; J7120; Q9957

== ENCOUNTER 2020-06-23 14:17 | Emergency (ER) | payer BC ==
[~2020-06-23] VITALS: Ht 177.8 cm; Wt 117.9 kg
[~2020-06-23 14:17] MED LIST changes: +Amiodarone HCl200 MG PO; +FURO40 PO; +Flomax0.4 MG PO; +LOSA25 PO; +SPIR25 PO; +TOPROL XL25 MG PO; +XARELTO20 MG PO
[2020-06-23 15:59] LABS: BASOPHILS ABSOLUTE AUTO 0.05 K/mm3 (0.00-0.23); BASOPHILS PERCENT AUTO 0 % (0-2); EOSINOPHILS PERCENT AUTO 1 % (0-6); Hemoglobin 16.2 g/dL (13.5-17.5); IMMATURE GRAN ABSOLUTE AUTO 0.15 K/mm3 (0.00-0.10); IMMATURE GRAN PERCENT AUTO 1 % (0-1); LYMPHOCYTES PERCENT AUTO 17 % (21-46); MONOCYTES ABSOLUTE AUTO 0.92 K/mm3 (0.16-1.47); MONOCYTES PERCENT AUTO 8 % (4-13); Mean Corpuscular HGB 30.8 pg (26.0-34.0); Mean Corpuscular HGB Conc 33.8 g/dL (31.5-36.5); Mean Corpuscular Volume 91 fL (80-100); Mean Platelet Volume 9.4 fL (9.1-12.4); NEUTROPHILS ABSOLUTE AUTO 8.54 K/mm3 (1.96-9.15); NEUTROPHILS PERCENT AUTO 73 % (41-73); Platelet Count 258 K/mm3 (150-400); RDW Coefficient Variation 12.6 % (11.7-14.2); RDW Standard Deviation 42.6 fL (35.1-46.3); Red Blood Cell Count 5.26 M/mm3 (4.30-5.90); White Blood Cell Count 11.76 K/mm3 (4.00-11.30)
[2020-06-23 16:17] LABS: Alanine Aminotransfer (ALT/SGP 46 U/L (12-78); Albumin, Blood 3.8 g/dL (3.4-5.0); Alk Phos 69 U/L (50-136); Anion Gap 8 mmol/L (6-16); Aspartate Aminotrans (AST/SGOT 27 U/L (12-37); Bilirubin, Total 0.7 mg/dL (0.1-1.0); Blood Urea Nitrogen 27 mg/dL (8-24); Bun/Creatinine Ratio 23.7 (12.0-20.0); CO2, Blood 23 mmol/L (21-32); Calcium, Blood 8.5 mg/dL (8.5-10.1); Chloride, Blood 105 mmol/L (98-108); Creatinine, Blood 1.14 mg/dL (0.60-1.20); Glomerular Filtration Rate >60 (60-); Glucose, Blood 99 mg/dL (70-99); Potassium, Blood 4.1 mmol/L (3.5-5.5); Sodium, Blood 136 mmol/L (136-145); Total Protein, Blood 7.8 g/dL (6.4-8.2); Troponin I <0.015 ng/mL (0.000-0.040)
== END 2020-06-23 22:21 | disposition home or self-care (01) ==
LOC: ER 14:17
PROVIDERS: Physician Assistant
DX: R06.00 Dyspnea, unspecified (principal); F20.9 Schizophrenia, unspecified; I50.9 Heart failure, unspecified; Z79.899 Other long term (current) drug therapy; Z79.01 Long term (current) use of anticoagulants
CPT/HCPCS: 36415; 71046; 80053; 83880; 84484; 85025; 93005; 93010; 99284-25

== ENCOUNTER 2020-07-23 10:55 | Emergency (ER) | payer MEDICARE ==
[~2020-07-23] VITALS: Ht 177.8 cm; Wt 117.9 kg
[2020-07-23 12:44] LABS: Alanine Aminotransfer (ALT/SGP 36 U/L (12-78); Albumin, Blood 3.6 g/dL (3.4-5.0); Albumin/Globulin Ratio 0.9 (0.8-1.8); Alk Phos 65 U/L (50-136); Anion Gap 6 mmol/L (6-16); Aspartate Aminotrans (AST/SGOT 24 U/L (12-37); Bilirubin, Total 0.6 mg/dL (0.1-1.0); Blood Urea Nitrogen 25 mg/dL (8-24); Bun/Creatinine Ratio 26.8 (12.0-20.0); CO2, Blood 26 mmol/L (21-32); Calcium, Blood 8.9 mg/dL (8.5-10.1); Chloride, Blood 106 mmol/L (98-108); Creatinine, Blood 0.93 mg/dL (0.60-1.20); Globulin, Blood 3.8 g/dL (2.2-4.0); Glomerular Filtration Rate >60 (60-); Glucose, Blood 93 mg/dL (70-99); Potassium, Blood 4.5 mmol/L (3.5-5.5); Sodium, Blood 138 mmol/L (136-145); Total Protein, Blood 7.4 g/dL (6.4-8.2)
== END 2020-07-23 13:04 | disposition home or self-care (01) ==
LOC: ER 10:55
PROVIDERS: Emergency Medicine
DX: I10 Essential (primary) hypertension (principal); F20.9 Schizophrenia, unspecified; I50.9 Heart failure, unspecified; Z79.01 Long term (current) use of anticoagulants; Z79.899 Other long term (current) drug therapy
CPT/HCPCS: 36415; 80053; 93005; 93010; 99283-25